=== PATIENT | female | born 1955 | race Caucasian/White ===

== ENCOUNTER 2021-10-08 08:54 | Outpatient (CLI) | payer MEDICARE, SELFPAY ==
--- NOTE | 2021-10-08 09:06 | MM_ITS ---
WS: [id number] BILATERAL DIGITAL SCREENING MAMMOGRAPHY WITH CAD CLINICAL INFORMATION: SCREENING HISTORY: Screening mammogram. No current complaints. COMPARISON: TECHNIQUE: Bilateral CC and MLO views. FINDINGS: Scattered fibroglandular densities bilaterally. A few tiny incidental punctate calcifications. No miranda picious focal mass, asymmetry, calcifications, or architectural distortion. No evidence of malignancy . MM/[place] [id number] IMPRESSION: BI-RADS: 2-Benign FOLLOW UP: 1 Year Follow-up Recommend return to annual screening mammography.
== END 2021-10-08 08:55 | disposition home or self-care (01) ==
PROVIDERS: PCP Nurse Practitioner Family; Visit Provider Nurse Practitioner Family
DX: Z12.31 Encounter for screening mammogram for malignant neoplasm of breast (principal)
CPT/HCPCS: 77067

== ENCOUNTER 2022-05-21 15:26 | Outpatient (CLI) | payer MEDICARE, SELFPAY ==
--- NOTE | 2022-05-21 15:48 | XR_ITS ---
WS: [email or web address] Exam: XR chest 2V* [id number] Date/Time of Exam: 05/21/2022 3:48 PM Reason For Exam: DYSPNEA No previous exams. There is infiltrate in the right lower lung zone that could represent chronic change or pneumonia. Le ft lung is clear. The lungs are fully inflated. No pleural effusions. Unremarkable cardiomediastinal silhouette. Bony structures are intact. XR/XR chest 2V* [id number] IMPRESSION: 1. Infiltrate in the right lower lung zone that may represent pneumonia or barkeep jose change.
== END 2022-05-21 15:27 | disposition home or self-care (01) ==
LOC: RAD 15:30
PROVIDERS: PCP Nurse Practitioner Family; Visit Provider Pediatrics
DX: R06.00 Dyspnea, unspecified (principal); R91.8 Other nonspecific abnormal finding of lung field
CPT/HCPCS: 71046

== ENCOUNTER → 2022-08-18 11:42 | Outpatient (BNVA) | payer MEDICARE, SELFPAY | PROVIDERS: PCP Family Medicine; Visit Provider Family Medicine | DX: M79.641 Pain in right hand (principal) | CPT/HCPCS: 73110; 73130 ==

== ENCOUNTER 2022-09-04 10:03 | Outpatient (CLI) | payer MEDICARE, SELFPAY ==
--- NOTE | 2022-09-04 10:47 | XR_ITS ---
WS: [email or web address] XR wrist RT min 3V* [id number] REASON FOR EXAM: wrist pain FINDINGS: No fracture or focal bone lesion. Mild narrowing of the radiocarpal joint with mild subchondral sclerosis of the subarticular radius. O therwise the joint spaces of the wrist are relatively well-preserved. No soft tissue abnormality. XR/XR wrist RT min 3V* [id number] IMPRESSION: Mild osteoarthritis of the right wrist as above.
--- NOTE | 2022-09-04 10:47 | XR_ITS ---
WS: [email or web address] XR hand RT min 3V* [id number] REASON FOR EXAM: wrist pain FINDINGS: No fracture or other focal bone lesion. Mild narrowing with subchondral sclerosis in the DIP joints of the fingers and the PIP joint of the f ifth finger. Similar but more pronounced arthropathy in the metacarpal phalangeal joint of the thumb. Similar mild er arthropathic change in the carpal metacarpal joint of the thumb. No soft tissue abnormality. XR/XR hand RT min 3V* [id number] IMPRESSION: Osteoarthritis of the right hand as above.
== END 2022-09-04 10:04 | disposition home or self-care (01) ==
LOC: RAD 10:08
PROVIDERS: PCP Family Medicine; Visit Provider Family Medicine
DX: M19.031 Primary osteoarthritis, right wrist; M19.041 Primary osteoarthritis, right hand
CPT/HCPCS: 73110; 73130

== ENCOUNTER 2022-11-13 09:11 | Outpatient (CLI) | payer MEDICARE, SELFPAY ==
--- NOTE | 2022-11-13 09:20 | XRR_ITS ---
PROCEDURE INFORMATION: Exam: XR Right Shoulder Exam date and time: 11/13/2022 9:30 AM Age: 67 years old Clinical indication: Pain; Shoulder; Right; Additional info: Pain of right shoulder TECHNIQUE: Imaging protocol: Radiologic exam of the Right shoulder. Views: 2 or more views. COMPARISON: CR XR chest 2V* [id number] 05/21/2022 3:48 PM FINDINGS: Bones/joints: There are mild degenerative changes at the AC joint. Glenohumeral joint is fairly well preserved. There is no fracture, malalignment or underlying osseous lesion detected. Soft tissues: Normal. XR/XR shoulder RT min 2V* [id number] IMPRESSION: No acute bony abnormalities.
== END 2022-11-13 09:12 | disposition home or self-care (01) ==
LOC: RAD 09:14
PROVIDERS: PCP Family Medicine; Visit Provider Family Medicine
DX: M25.511 Pain in right shoulder (principal); I10 Essential (primary) hypertension
CPT/HCPCS: 73030; 80053; 80061; 82043; 85025

== ENCOUNTER 2022-12-09 08:38 | Outpatient (RCR) | payer MEDICARE, SELFPAY | END 2022-12-30 23:59 | disposition home or self-care (01) | LOC: SPT 08:38 | PROVIDERS: PCP Family Medicine; Visit Provider Family Medicine | DX: M19.011 Primary osteoarthritis, right shoulder (principal) | CPT/HCPCS: 97110; 97161; G0283 ==

== ENCOUNTER 2023-01-27 06:45 | Outpatient (CLI) | payer MEDICARE, SELFPAY ==
--- NOTE | 2023-01-27 07:15 | MR_ITS ---
WS: [email or web address] EXAMINATION: MR shoulder RT wo con* [id number] ORDER DATE: 01/27/2023 7:14 AM COMPARISON: None. HISTORY: right shoulder pain, limited R CONTRAST: None. TECHNIQUE: Axial T2 STAR, coronal proton density fat sat, sagittal T2 fat sat, sagittal proton densit y fat sat, axial proton density fat sat, coronal T2 fat sat, and coronal T1 performed. After contrast , axial T1 fat sat, coronal T1 fat sat, and sagittal T1 fat sat were performed. FINDINGS: Moderate degenerative arthritis AC joint with mild edema. Mild downsloping acromion. Slight impingeme nt on the distal supraspinatus. Tendinopathy distal supraspinatus with intrasubstance tear distally. No tendon retraction. Normal infraspinatus. Normal teres minor. Biceps tendon intact within the bicipital groove. Normal in tra-articular biceps tendon. Biceps labral anchor appears intact. Degenerative fraying glenoid labrum . Small amount of subchondral cystic change involving the glenoid. Normal bone marrow signal in the h umeral head. Small amount of fluid in the subcoracoid bursa. MR/MR shoulder RT wo con* [id number] IMPRESSION: 1. Moderate degenerative arthritis AC joint with mild edema. Mild downsloping acromion. 2. Tendinopathy distal supraspinatus. Small intrasubstance tear in the suprasp inatus distally. No tendon retraction. 3. Rotator cuff is otherwise intact. 4. Normal biceps tendon in the bicipital groove. Intra-articular biceps tendon is intact. 5. No other acute findings.
== END 2023-01-27 06:46 | disposition home or self-care (01) ==
LOC: RAD 06:46
PROVIDERS: PCP Family Medicine; Visit Provider Family Medicine
DX: M19.011 Primary osteoarthritis, right shoulder (principal)
CPT/HCPCS: 73221

== ENCOUNTER → 2023-02-20 09:04 | Outpatient (BNVA) | payer MEDICARE, SELFPAY | PROVIDERS: PCP Family Medicine; Referring Provider Family Medicine; Visit Provider Student in an Organized Health Care Education/Training Program | DX: M75.21 Bicipital tendinitis, right shoulder (principal); M75.41 Impingement syndrome of right shoulder | CPT/HCPCS: 20610; 73030; 99204; J3301 ==

== ENCOUNTER → 2023-03-18 08:49 | Outpatient (BNVA) | payer MEDICARE, SELFPAY | PROVIDERS: PCP Family Medicine; Visit Provider Emergency Medicine | DX: J02.9 Acute pharyngitis, unspecified (principal); J30.1 Allergic rhinitis due to pollen | CPT/HCPCS: 87071; 87880 ==

== ENCOUNTER → 2023-04-09 09:40 | Outpatient (BNVA) | payer MEDICARE, SELFPAY | PROVIDERS: PCP Family Medicine; Visit Provider Student in an Organized Health Care Education/Training Program | DX: M75.21 Bicipital tendinitis, right shoulder (principal); M75.41 Impingement syndrome of right shoulder | CPT/HCPCS: 99213 ==

== ENCOUNTER → 2023-05-14 08:46 | Outpatient (BNVA) | payer MEDICARE, SELFPAY | PROVIDERS: PCP Family Medicine; Visit Provider Family Medicine | DX: E78.5 Hyperlipidemia, unspecified (principal) | CPT/HCPCS: 80053; 80061 ==

== ENCOUNTER 2023-05-27 07:58 | Outpatient (CLI) | payer MEDICARE, SELFPAY ==
--- NOTE | 2023-05-27 08:25 | MM_ITS ---
WS: [email or web address] VIEWS: MLO and CC views both breasts. 3D digital tomosynthesis is also included in this exam. Comparison made with prior exam of 07/22/2016, 08/05/2017, 04/26/2019, 10/08/2021.. Findings: There was no sign of mass, architectural distortion or suspicious calcification in either breast. Sc attered areas of fibroglandular density MM/[place] [id number] Impression: BI-RADS: 2-Benign finding. FOLLOW-UP: 1 Year Follow-up This mammogram was also analyzed by the Computer Aided Detection System R2 Imag e Endoscopy Nurse.
== END 2023-05-27 07:59 | disposition home or self-care (01) ==
PROVIDERS: PCP Family Medicine; Visit Provider Family Medicine
DX: Z12.31 Encounter for screening mammogram for malignant neoplasm of breast (principal)
CPT/HCPCS: 77063; 77067

== ENCOUNTER → 2023-11-12 08:39 | Outpatient (BNVA) | payer MEDICARE, SELFPAY | PROVIDERS: PCP Family Medicine; Visit Provider Family Medicine | DX: Z13.6 Encounter for screening for cardiovascular disorders (principal); I10 Essential (primary) hypertension | CPT/HCPCS: 80053; 85025 ==

== ENCOUNTER 2024-02-08 07:45 | Outpatient (CLI) | payer MEDICARE, SELFPAY ==
--- NOTE | 2024-02-08 08:30 | CT_ITS ---
WS: [id number] CT ABDOMEN PELVIS TECHNIQUE: Contrast-enhanced CT of the abdomen and pelvis with coronal and sagittal reformatted image s. CLINICAL INFORMATION: abdominal pain COMPARISON: None. DLP: 483.[address] scans at [facility] use at least one of these dose optimization techniques: automated e xposure control; mA and/or kV adjustment per patient size (includes targeted exams where dose is matc hed to clinical indication); or iterative reconstruction. FINDINGS: Prior hysterectomy. Prior cholecystectomy. Prior appendectomy. Subsegmental atelectasis RIGHT middle lobe. Noncalcified nodule RIGHT middle lobe measuring 3 mm. Slight bibasilar atelectasis. Diffuse fatty infiltration of the liver. Normal portal vein and splenic vein. Normal pancreatic paren chymal enhancement. Normal spleen. Adrenal glands are normal. No hydronephrosis in either kidney. Sma ll LEFT renal cyst. Pelvic phleboliths. Tiny esophageal hernia. Normal caliber abdominal aorta. Tiny fat-containing umbil ical hernia. Mild disc bulging L3-L5. Disc space narrowing worse L5-S1. IMPRESSION: 1. Prior hysterectomy and cholecystectomy. 2. Tiny esophageal hernia. 3. Mild diffuse fatty infiltration of the liver. 4. Noncalcified 3 mm nodule RIGHT middle lobe. Recommend 12-month CT chest follow-up. 5. Mild transverse colon constipation.
[2024-02-08 09:15] LABS: Blood Urea Nitrogen 17 mg/dL (8-23); Glomerular Filtration Rate 54.8 mL/min (90-130)
[2024-02-08] MEDS: iohexol 350 mg/mL 500 mL Btl (per mL) PO (09:43)
[2024-02-08] MEDS: iohexol 350 mg/mL 500 mL Btl (per mL) IV (09:44)
== END 2024-02-08 07:46 | disposition home or self-care (01) ==
LOC: RAD 07:46
PROVIDERS: PCP Family Medicine; Visit Provider Family Medicine
DX: K59.00 Constipation, unspecified (principal); K76.0 Fatty (change of) liver, not elsewhere classified; Z90.710 Acquired absence of both cervix and uterus; Z90.49 Acquired absence of other specified parts of digestive tract
CPT/HCPCS: 74177; 82565; 84520; Q9967

== ENCOUNTER → 2024-03-22 09:23 | Outpatient (BNVA) | payer MEDICARE, SELFPAY | PROVIDERS: PCP Family Medicine; Visit Provider Nurse Practitioner Family | DX: J02.9 Acute pharyngitis, unspecified (principal) | CPT/HCPCS: 87880 ==

== ENCOUNTER 2024-05-21 12:10 | Emergency (ER) | payer MEDICARE, SELFPAY ==
[2024-05-21] VITALS (8 sets, daily range): BP systolic 125–148; BP diastolic 75–88; PULSE 54–98; RESP 14–22; TEMP 36; O2SAT 95–98
--- NOTE | 2024-05-21 12:20 | XRR_ITS ---
PROCEDURE INFORMATION: Exam: XR Chest Exam date and time: 05/21/2024 12:26 PM Age: 68 years old Clinical indication: Pain; Chest pressure; Additional info: Cp TECHNIQUE: Imaging protocol: Radiologic exam of the chest. Views: 1 view. COMPARISON: CR XR chest 2V* [id number] 05/21/2022 3:48 PM FINDINGS: Lungs: Unremarkable. No consolidation. Pleural spaces: Unremarkable. No pleural effusion. No pneumothorax. Heart/Mediastinum: Unremarkable. No cardiomegaly. Bones/joints: Unremarkable. XR/XR chest 1V portable [id number] IMPRESSION: No acute findings.
--- NOTE | 2024-05-21 12:20 | ECG_ITS ---
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 Measurements Intervals [place] Rate: 58 P: 78 NE: 136 QRS: 72 QRSD: 94 T: 76 QT: 366 QTc: 361 Interpretive Statements SINUS BRADYCARDIA MODERATE ST DEPRESSION [0.05+ mV ST DEPRESSION] No previous ECG available for comparison Electronically Signed On 05-22-2024 9:52:20 CDT by Enrique Lunsford M.D. [email or web address]
[2024-05-21 12:28] LABS: Basophils % 0.3 %; Eosinophils # 0.1 10^3/uL (0.0-0.8); Hematocrit 47.5 % (36-47); Lymphocytes # 2.3 10^3/uL (0.8-4.8); Lymphocytes % 31.9 %; Mean Corpuscular HGB Conc 33.7 g/dL (30-55); Mean Corpuscular Hemoglobin 31.4 pg (27-33); Mean Corpuscular Volume 93.1 fl (85-98); Mean Platelet Volume 9.7 fL (7.4-10.4); Monocytes # 0.4 10^3/uL (0.2-0.9); Monocytes % 5.2 %; Neutrophils % 61.3 %; Nucleated Red Blood Cells % 0 %; Platelet Count 303 10^3/cmm (157-399); Red Cell Distribution Width 12.4 % (12.1-15.1); White Blood Count 7.33 10^3/uL (3.29-11.43)
[2024-05-21] MEDS: famotidine 20 mg/2 mL INJ IVP (12:32)
[2024-05-21 12:45] LABS: Troponin(5th) Baseline 10 ng/L (0-10)
[2024-05-21 12:46] LABS: Alanine Aminotransferase 26 U/L (0-33); Albumin Level 4.6 g/dL (3.5-5.2); Alkaline Phosphatase 63 U/L (35-105); Aspartate Amino Transferase 22 U/L (0-32); Blood Urea Nitrogen 15 mg/dL (8-23); Calcium 10.4 mg/dL (8.5-10.5); Carbon Dioxide 29 mmol/L (22-29); Chloride 99 mmol/L (98-107); Glomerular Filtration Rate 54.8 mL/min (90-130); Glucose 107 mg/dL (65-115); Lipase 45 U/L (13-60); Osmolality Calculated 291 mOsm/kg (285-295); Sodium 140 mmol/L (136-145); Total Bilirubin 0.4 mg/dL (0.15-1.2); Total Protein 7.6 g/dL (6.6-8.7)
[2024-05-21 12:47] LABS: Add Urine Microscopic? NO; Charge for UA Resulting for Rev
[2024-05-21 13:00] LABS: Bilirubin Urine Neg (Negative); Blood Urine Neg (Negative); Glucose Urine UA Norm (Normal); Ketones Urine Negative (Negative); Leukocyte Esterase Urine Negative (Negative); Nitrate Urine Negative (Negative); Protein Urine Neg (Negative); Sulfosalicylic Acid Urine Negative (Negative); Urine Appearance Clear (CLEAR); Urine Color Yellow (Yellow); Urobilinogen Urine Norm (Negative); pH Urine 8 (5-7)
--- NOTE | 2024-05-21 13:03 | ED_ITS ---
HPI - Chest Pain 2 General: Chief Complaint: Chest Pain Stated Complaint: chest pains, heart racing Time Seen by Provider: 05/21/24 12:14 History of Present Illness: 68-year-old female presents with subster nal/epigastric pain that radiates to her back. She reports she was just set setting there when it started approximately 1 hour prior to arrival. She describes a sharp stabbing pain that comes and goes. Nothing seems to make it better or worse. Associated symptoms: Reports abdominal pain; Deny dyspnea, fever(s), nausea, palpitations, syncope or vomiting Review of Systems 2 Const: Denies: fever(s) or chills Card: Reports: chest pain; Denies: palpitations, irregular heart rhythm, lightheadedness or syncope Resp: Denies: dyspnea, productive cough or wheezing GI: Reports: abdominal pain; Denies: nausea or vomiting Musc: Reports: back pain Skin/Breast: Denies: rash or pruritus Neuro: Denies: headache(s) PFSH ED 2 PFSH: Medical History URI with cough and congestion GERD (gastroesophageal reflux disease) COPD (chronic obstructive pulmonary disease) Benign essential HTN Surgical History History of cholecystectomy History of carpal tunnel release Bilaterally History of appendectomy History of total abdominal hysterectomy and bilateral salpingo-oophorectomy Social History Smoking and tobacco/nicotine status: never used tobacco/nicotine Alcohol intake: never Substance/Drug Use: never Physical Exam 2 Const: COMMON NORMALS: no acute distress, patient oriented x3 and alert Resp: COMMON NORMALS: normal respiratory effort, No retractions and No use of accessory muscles Cardio: COMMON NORMALS: regular rate and regular rhythm RATE: regular rate RHYTHM: regular rhythm GI: COMMON NORMALS: Soft to palpation PALPATION: Yes Soft to palpation and Yes Tenderness to palpation present (GI) Details: other (Epigastric) Extremity: COMMON NORMALS: normal to inspection and full ROM Neuro: COMMON NORMALS: patient oriented x3, moves all extremities, no focal motor deficits and no sensory deficits noted SENSORIUM/ORIENTATION: Yes alert Psych: COMMON NORMALS: mental status grossly normal, cooperative and normal affect Skin: COMMON NORMALS: no rashes or lesions noted GENERAL SKIN EXAM: no rashes or lesions noted Course 2 Vital Signs: Vital signs: Vital Signs Temperature 96.8 F L 05/21/24 12:14 Pulse Rate 55 L 05/21/24 15:00 Respiratory Rate 16 05/21/24 15:00 Blood Pressure 137/86 05/21/24 15:00 Pulse Oximetry 96 05/21/24 15:00 Oxygen Delivery Me thod Room Air 05/21/24 15:00 MDM - Chest Pain Medical Decision Making Patient diagnostic studies were ordered reviewed and interpreted by me. Patient initial troponin was 8 with a slight increase to 3.3 so no significant delta change. Patient's EKGs both show sinus bradycardia with no significant changes noted. Patient is feeling significantly better and her pain completely resolved following famotidine. She reports she has a history of a hiatal hernia and thinks that that is what was related. Patient was offered admission for further cardiac workup however she declined. Patient is stable and discharged home. She will follow-up with her primary care provider for further outpatient evaluation. Lab Data 05/21/24 12:22 05/21/24 12:22 Radiology Impressions Chest X-Ray 05/21/24 12:20 IMPRESSION: No acute findings. Laboratory Results WBC 7.33 10^3/uL (3.29-11.43) 05/21/24 12:22 RBC 5.10 10^6/uL (3.85-5.65) 05/21/24 12:22 Hgb 16.00 g/dL (11.27-16.99) 05/21/24 12:22 Hct 47.5 % (36-47) H 05/21/24 12:22 MCV 93.1 fl (85-98) 05/21/24 12:22 MCH 31.4 pg (27-33) 05/21/24 12: MCHC 33.7 g/dL (30-55) 05/21/24 12: RDW 12.4 % (12.1-15.1) 05/21/24 12:22 Plt Count 303 10^3/cmm (157-399) 05/21/24 12: MPV 9.7 fL (7.4-10.4) 05/21/24 12:22 Neut % (Auto) 61.3 % 05/21/24 12:22 Lymph % (Auto) 31.9 % 05/21/24 12:22 [place] % (Auto) 5.2 % 05/21/24 12:22 Eos % (Auto) 1.0 % 05/21/24 12:22 Baso % (Auto) 0.3 % 05/21/24 12:22 Neut # (Auto) 4.50 10^3/uL (1.8-7.7) 05/21/24 12:22 Lymph # (Auto) 2.3 10^3/uL (0.8-4.8) 05/21/24 12:22 [place] # (Auto) 0.4 10^3/uL (0.2-0.9) 05/21/24 12: Eos # (Auto) 0.1 10^3/uL (0.0-0.8) 05/21/24 12: Baso # (Auto) 0.0 10^3/uL (0.0-0.1) 05/21/24 12:22 Nucleated RBC % (auto) 0 % 05/21/24 12: Nucleated RBCs # 0.0 /100WBC 05/21/24 12:22 Sodium 140 mmol/L (136-145) 05/21/24 12:22 Potassium 4.0 mmol/L (3.5-5.1) 05/21/24 12: Chloride 99 mmol/L (98-107) 05/21/24 12:22 Carbon Dioxide 29 mmol/L (22-29) 05/21/24 12:22 Anion Gap 16.0 (5-19) 05/21/24 12:22 BUN 15 mg/dL (8-23) 05/21/24 12:22 Creatinine 1.0 mg/dL (0.5-0.9) H 05/21/24 12:22 GFR Calculation 54.8 mL/min (90-130) L 05/21/24 12:22 Glucose 107 mg/dL (65-115) 05/21/24 12:22 Calculated Osmolality 291 mOsm/kg (285-295) 05/21/24 12:22 Calcium 10.4 mg/dL (8.5-10.5) 05/21/24 12:22 Total Bilirubin 0.4 mg/dL (0.15-1.2) 05/21/24 12:22 AST 22 U/L (0-32) 05/21/24 12:22 ALT 26 U/L (0-33) 05/21/24 12:22 Alkaline Phosphatase 63 U/L (35-105) 05/21/24 12:22 Troponin T Baseline 10 ng/L (0-10) 05/21/24 12:22 Troponin T 120 Minute 13.30 ng/L (0-10) H 05/21/24 14:11 Delta Troponin T 3.30 ABS# (0-10) 05/21/24 14:11 Total Protein 7.6 g/dL (6.6-8.7) 05/21/24 12:22 Albumin 4.6 g/dL (3.5-5.2) 05/21/24 12:22 Globulin 3.0 g/dL (1.3-4.6) 05/21/24 12:22 Lipase 45 U/L (13-60) 05/21/24 12:22 Urine Color Yellow (Yellow) 05/21/24 12:39 Urine Appearance Clear (CLEAR) 05/21/24 12:39 Urine pH 8 (5-7) H 05/21/24 12:39 Ur Specific [place] 1.010 (1.005-1.030) 05/21/24 12:39 Urine Protein Neg (Negative) 05/21/24 12:39 Urine Glucose (UA) Norm (Normal) 05/21/24 12:39 Urine Ketones Negative (Negative) 05/21/24 12:39 Urine Blood Neg (Negative) 05/21/24 12:39 Urine Nitrate Negative (Negative) 05/21/24 12:39 Urine Bilirubin Neg (Negative) 05/21/24 12:39 Prot Sulfosalicylic Acd Negative (Negative) 05/21/24 12:39 Urine Urobilinogen Norm mg/dL (Negative) 05/21/24 12:39 Ur Leukocyte Esterase Negative (Negative) 05/21/24 12:39 All radiology interpretation(s) finalized by discharge EKG Data EKG 1: I personally reviewed and interpreted this EKG as follows: EKG interpretation date: 05/21/24 EKG interpretation time: 12:15 Interpretation: Heart rate 58, sinus bradycardia, no acute ST elevation or changes noted NJ 136, QRS 94, QTc 363 EKG 2: I personally reviewed and interpreted this EKG as follows: EKG interpretation date: 05/21/24 EKG interpretation time: 15:00 Interpretation: Sinus bradycardia, ventricular rate 55, NJ 131, QRS 85, QTc 386, unchanged from previous. Discharge Plan Discharge Patient Disposition: Home Clinical Impression: Hernia, hiatal, Nonspecific chest pain GERD (gastroesophageal reflux disease) Qualifiers: Esophagitis presence: with esophagitis Esophagitis bleeding: without hemorrhage Qualified Code(s): K21.00 - Gastro-esophageal reflux disease with esophagitis, without bleeding Condition: Stable Prescriptions: No Action multivitamin Tablet 1 tab PO DAILY meclizine 25 mg tablet 25 mg PO DAILY PRN vitamin B complex [B Complex-Vitamin B12] Tablet 1 tab PO DAILY simethicone 125 mg capsule 125 mg PO DAILY PRN ketoconazole 2 % cream 1 applic topical BID Qty: 15 0RF ascorbic acid (vitamin C) 1,000 mg capsule 1 g PO Q6H cholecalciferol (vitamin D3) 25 mcg (1,000 unit) capsule 25 mcg PO DAILY metronidazole 500 mg tablet 500 mg PO TID 10 Days Qty: 30 0RF ciprofloxacin HCl 500 mg tablet 500 mg PO BID Qty: 20 0RF azithromycin 250 mg tablet See Rx Instructions PO .COMPLEX Qty: 6 0RF Rx Instructions: For 250 mg dose pack: take 500 mg today (day 1), then 250 mg for 4 days (days 2-5) PO cetirizine [Zyrtec] 10 mg tablet 10 mg PO DAILY Qty: 30 0RF fluticasone furoate-vilanterol [Breo Ellipta] 200-25 mcg/dose blister with device 1 inh inhalation DAILY Qty: 60 5RF benzonatate 200 mg capsule 200 mg PO BID PRN (Reason: cough) Qty: 14 0RF fluticasone propionate 50 mcg/actuation spray,suspension See Rx Instructions .ROUTE .COMPLEX Qty: 16 1RF Dose Instruction: SPRAY 2 SPRAYS INTO EACH NOSTRIL EVERY DAY NEEDED FOR NASAL CONGESTION Rx Instructions: SPRAY 2 SPRAYS INTO EACH NOSTRIL EVERY DAY NEEDED FOR NASAL CONGESTION estradiol 0.01 % (0.1 mg/gram) cream 1 g vaginal .twice weekly Qty: 42.5 3RF hydrochlorothiazide 12.5 mg tablet See Rx Instructions .ROUTE .COMPLEX Qty: 90 1RF Dose Instruction: TAKE 1 TABLET BY MOUTH EVERY DAY IN THE MORNING Rx Instructions: TAKE 1 TABLET BY MOUTH EVERY DAY IN THE MORNING pantoprazole 40 mg tablet,delayed release (DR/EC) See Rx Instructions .ROUTE .COMPLEX Qty: 90 1RF Dose Instruction: TAKE 1 TABLET BY MOUTH EVERY DAY Rx Instructions: TAKE 1 TABLET BY MOUTH EVERY DAY celecoxib 100 mg capsule See Rx Instructions .ROUTE .COMPLEX Qty: 180 1RF Dose Instruction: TAKE 1 CAPSULE BY MOUTH TWICE A DAY Rx Instructions: TAKE 1 CAPSULE BY MOUTH TWICE A DAY albuterol sulfate 90 mcg/actuation HFA aerosol inhaler See Rx Instructions .ROUTE .COMPLEX Qty: 18 0RF Dose Instruction: INHALE 1 PUFF BY MOUTH 4 TIMES DAILY Rx Instructions: INHALE 1 PUFF BY MOUTH 4 TIMES DAILY ezetimibe 10 mg tablet See Rx Instructions .ROUTE .COMPLEX Qty: 90 1RF Dose Instruction: TAKE 1 TABLET BY MOUTH EVERY DAY Rx Instructions: TAKE 1 TABLET BY MOUTH EVERY DAY Discharge Orders: Discharge ED (Routine); Ordered 05/21/24 Ordered By: Nicholas Gallardo Referrals: Sherri Ponce DO [Primary Care Provider] - Discharge Diet: Usual diet Discharge Activity: Increase activity as tolerated Patient Instructions: Opioid Safety, Pain Management, Hiatal Hernia (DC), GERD (Gastroesophageal Reflux Disease) (DC) Activity Restrictions/Additional Instructions: Follow-up with your primary care provider in a couple days for recheck of your symptoms. Please start famotidine twice daily for the next 10 to 14 days Coding Level of Care Code ED Pbx Technician for Tom Figueroa
--- NOTE | 2024-05-21 15:00 | ECG_ITS ---
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 Measurements Intervals [place] Rate: 55 P: 76 NC: 131 QRS: 58 QRSD: 85 T: 62 QT: 397 QTc: 382 Interpretive Statements SINUS BRADYCARDIA Compared to ECG 05/21/2024 12:12:55 ST (T wave) deviation no longer present Electronically Signed On 05-22-2024 9:57:12 CDT by Enrique Lunsford M.D. [id number]
== END 2024-05-21 13:36 | disposition home or self-care (01) ==
PROVIDERS: Emergency Provider Student in an Organized Health Care Education/Training Program; PCP Family Medicine
DX: K21.00 Gastro-esophageal reflux disease with esophagitis, without bleeding (principal); K44.9 Diaphragmatic hernia without obstruction or gangrene; R07.89 Other chest pain; R00.1 Bradycardia, unspecified; J44.9 Chronic obstructive pulmonary disease, unspecified; I10 Essential (primary) hypertension
CPT/HCPCS: 36415; 71045; 80053; 81003; 83690; 84484; 85025; 93005; 96374; 99285; 99291; J3490

== ENCOUNTER → 2024-05-26 10:55 | Outpatient (BNVA) | payer MEDICARE, SELFPAY | PROVIDERS: PCP Family Medicine; Visit Provider Family Medicine | DX: R41.3 Other amnesia (principal); E53.8 Deficiency of other specified B group vitamins | CPT/HCPCS: 82607; 84443 ==

== ENCOUNTER 2024-06-07 12:07 | Outpatient (CLI) | payer MEDICARE, SELFPAY ==
--- NOTE | 2024-06-07 12:30 | MM_ITS ---
WS: [email or web address] BILATERAL 3D TOMOSYNTHESIS DIGITAL SCREENING MAMMOGRAPHY WITH CAD CLINICAL INFORMATION: screening HISTORY: Screening mammogram. No current complaints. COMPARISON: 2022 TECHNIQUE: Bilateral CC and MLO views. FINDINGS: Scattered fibroglandular densities bilaterally. No suspicious focal mass, asymmetry, calcifications, or architectural distortion. No evidence of malignancy. Vascular calcification. MM/[place] [id number] IMPRESSION: BI-RADS: 2-Benign FOLLOW UP: 1 Year Follow-up Recommend return to annual screening mammography.
--- NOTE | 2024-06-07 13:30 | CT_ITS ---
WS: [id number] CT HEAD TECHNIQUE: Noncontrast CT of the head obtained from the skullbase to the vertex. CLINICAL INFORMATION: memory impairment COMPARISON: None. DLP: 990.[address] scans at [facility] use at least one of these dose optimization techniques: automated e xposure control; mA and/or kV adjustment per patient size (includes targeted exams where dose is matc hed to clinical indication); or iterative reconstruction. FINDINGS: No evidence of intracranial hemorrhage or mass effect. Ventricular system and basal cisterns are babb nt. Moderate small vessel changes with mild parenchymal volume loss. No extra-axial fluid collections . No evidence of mass or mass effect. Vascular calcification. Paranasal sinuses are well aerated. Mild mucosal thickening in the mastoid tips. CT/CT head wo con* [id number] IMPRESSION: 1. No evidence of intracranial hemorrhage or mass effect. 2. Moderate small vessel changes. Mild parenchymal volume loss. 3. Vascular calcification. 4. No acute intracranial findings.
== END 2024-06-07 12:08 | disposition home or self-care (01) ==
LOC: RAD 12:08
PROVIDERS: PCP Family Medicine; Visit Provider Family Medicine
DX: Z12.31 Encounter for screening mammogram for malignant neoplasm of breast (principal); R41.3 Other amnesia
CPT/HCPCS: 70450; 77063; 77067

== ENCOUNTER → 2024-06-22 11:00 | Outpatient (BNVA) | payer MEDICARE, SELFPAY | PROVIDERS: PCP Family Medicine; Visit Provider Surgery | DX: R19.7 Diarrhea, unspecified (principal); K21.00 Gastro-esophageal reflux disease with esophagitis, without bleeding; R10.10 Upper abdominal pain, unspecified | CPT/HCPCS: 99204 ==

== ENCOUNTER 2024-06-23 10:14 | Outpatient (CLI) | payer MEDICARE, SELFPAY | END 2024-06-23 10:15 | disposition home or self-care (01) | LOC: LAB 10:15 | PROVIDERS: PCP Family Medicine; Visit Provider Surgery | DX: R19.7 Diarrhea, unspecified (principal) | CPT/HCPCS: 82274; 83630 ==

== ENCOUNTER → 2024-07-04 10:29 | Outpatient (BNVA) | payer MEDICARE, SELFPAY | PROVIDERS: PCP Family Medicine; Visit Provider Family Medicine | DX: M19.012 Primary osteoarthritis, left shoulder (principal); M19.011 Primary osteoarthritis, right shoulder | CPT/HCPCS: 73030 ==

== ENCOUNTER 2024-07-12 10:32 | Day surgery (SDC) | payer MEDICARE, SELFPAY ==
[2024-07-12 10:50] VITALS: BP 148/82; PULSE 59; RESP 18; TEMP 36.6; O2SAT 98; BMI 29.2
[2024-07-12] MEDS: sodium chloride 0.9% 1,000 ML 30 ML IV (10:55)
[2024-07-12 11:09] LABS: Glucose Point of Care 109 mg/dL (70-110)
--- NOTE | 2024-07-12 11:16 | W.PM.OPSUD ---
Surgery/Procedure H&P Update DATE OF PROCEDURE: July 12, 2024 DATE H&P PERFORMED: 06/23/24 H&P UPDATE INFORMATION: I have reviewed H&P completed within last 30 days, I have examined patient prior to procedure, No changes to prior documentation and H&P is in [facility] EMR on date indicated PLANNED PROCEDURE: Operation Date: 07/12/24 11:50 Proposed Procedures p EGD [id number], [id number], G0105, Z12.11(Not Applicable) - Kev Bower MD s Colonoscopy(Not Applicable) - Kev Bower MD
--- NOTE | 2024-07-12 11:39 | P.ANESASSM_ITS ---
Pre-Anesthetic Assessment Height/Weight: Height 1.57 m Weight 72.575 kg Temp Pulse Resp BP Pulse Ox O2 Del Method 97.9 F 59 L 18 148/82 98 Room Air 07/12/24 10:50 07/12/24 10:50 07/12/24 10:50 07/12/24 10:50 07/12/24 10:50 07/12/24 10:50 Preop Diagnosis: Screening Hiatal Hernia Operation Date: 07/12/24 11:50 Proposed Procedures p EGD 71634, 23840, G0105, Z12.11(Not Applicable) - Kev Bower MD s Colonoscopy(Not Applicable) - Kev Bower MD Familial anesthetic complications: none Was Beta Emily taken within 24 hours: N/A Was Clonidine taken within 24 hours: N/A Last intake: Intake Last Liquid Date 07/11/24 Last Liquid Time 23:00 Last Solid Date 07/10/24 Last Solid Time 20:00 Social No alcohol and No tobacco Exam alert, oriented x 3, clear to auscultation bilaterally and regular rate & rhythm Airway Submandibular: within normal limits Cervical ROM: within normal limits Mallampati: Class II Dentition: false (upper plate) Pulmonary Chronic Obstructive Pulmonary Disease CV/HEM Hypertension came to the ED for chest pain about a month ago per patient labs and ekg were inconclusive of a heart attach recommended being worked up for duodenal ulcer. None reported Hepatic None reported GI Gastroesophageal Reflux Disease and Hiatal Hernia protonix well controlled. Metabolic Hyperlipidemia issues with hypoglycemia. [facility] [place]/[facility] None reported Neuropsych Deficit (memory deficit per patient short term memory issue medication names and such ) and Transient Ischemic Attack (2019) Anesthetic Plan ASA status: 2 Medications/Allergies Home Medications Medication Instructions Recorded Confirmed Last Taken Type meclizine 25 mg tablet 25 mg PO DAILY PRN Dizziness Or 06/02/22 07/07/24 07/11/24 History Vertigo multivitamin 1 tab PO DAILY 06/02/22 07/07/24 07/11/24 History cholecalciferol (vitamin D3) 25 25 mcg PO DAILY 02/20/23 07/07/24 07/11/24 History mcg (1,000 unit) capsule fluticasone furoate 200 1 inh inhalation DAILY #60 ea 11/12/23 07/07/24 07/11/24 Rx mcg-vilanterol 25 mcg/dose inhalation powder (Breo Ellipta) rhubarb root extract 4 mg tablet 4 mg PO DAILY 07/04/24 07/07/24 07/11/24 History (Estroven Complete Menopause Relief) albuterol sulfate 90 mcg/actuation 1 puff inhalation QID PRN 07/07/24 07/07/24 07/12/24 08:30 History aerosol inhaler Shortness Of Breath Or Wheezing celecoxib 100 mg capsule 100 mg PO BID 07/07/24 07/07/24 07/11/24 History ezetimibe 10 mg tablet 10 mg PO DAILY 07/07/24 07/07/24 07/11/24 History hydrochlorothiazide 12.5 mg tablet 12.5 mg PO DAILY 07/07/24 07/07/24 07/12/24 08:30 History pantoprazole 40 mg tablet,delayed 40 mg PO DAILY 07/07/24 07/07/24 07/11/24 History release Allergies Allergy/AdvReac Type Severity Reaction Status Date / Time Xtttzcr-FOY-BsC Reductase Allergy Severe throat Verified 07/07/24 09:59 Inhibitor swelling aspirin Allergy Unknown ADR-Abdominal Verified 07/07/24 09:59 Pain codeine Allergy ADR-Abdominal Verified 07/07/24 09:59 Pain morphine Allergy ADR-Abdominal Verified 07/07/24 09:59 Pain penicillin G Allergy ALGY-Bliste Verified 07/07/24 09:59 r Sulfa (Sulfonamide Allergy ADR-Nausea Verified 07/07/24 09:59 Antibiotics) Current Medications Generic Name Dose Route Start Last Admin Trade Name Freq PRN Reason Stop Dose Admin Sodium Chloride 1,000 mls @ 30 mls/hr 07/12/24 10:45 07/12/24 10:55 Sodium Chloride 0.9% IV 07/13/24 10:44 30 mls/hr .Q24H TAMMY Administration PFSH Anesthesia Medical History (Updated 07/07/24 @ 09:17 by Sita Bailey) URI with cough and congestion GERD (gastroesophageal reflux disease) COPD (chronic obstructive pulmonary disease) Benign essential HTN Surgical History History of cholecystectomy History of carpal tunnel release Bilaterally History of appendectomy History of total abdominal hysterectomy and bilateral salpingo-oophorectomy Social History (Updated 07/04/24 @ 10:08 by Jace Ge MD) Smoking and tobacco/nicotine status: former use of tobacco/nicotine Quit status (tobacco/nicotine): has quit using Former quit date comment: quit 40yrs ago Alcohol intake: never Substance/Drug Use: never Data Anesthesia Cardiac Studies: No Data to Display
[2024-07-12 12:32] VITALS: BP 119/68; PULSE 72; RESP 14; TEMP 36.3; O2SAT 94
[2024-07-12 12:49] VITALS: BP 131/72; PULSE 64; RESP 16; O2SAT 95
[2024-07-12 13:05] VITALS: BP 148/80; PULSE 65; RESP 18; O2SAT 97
--- NOTE | 2024-07-12 13:15 | ANE.PACU2 ---
Inpatient post-anesthesia follow up: Airway intact: Yes Vital signs: Temperature 97.4 F Pulse Rate 65 Respiratory Rate 18 Blood Pressure 148/80 Pulse Oximetry 97 Oxygen Delivery Me thod Room Air Oxygen Flow Rate 4 Fraction of Inspir ed Oxygen Hydration adequate: Yes Nausea and vomiting: No Pain level: 1 Mental status: Baseline
== END 2024-07-12 13:15 | disposition home or self-care (01) ==
PROVIDERS: PCP Family Medicine; Visit Provider Surgery
PROC: 0DJ08ZZ Inspection of Upper Intestinal Tract, Via Natural or Artificial Opening Endoscopic (ICD-10-PCS; CPT 43235; principal; 2024-07-12 11:50)
PROC: 0DJD8ZZ Inspection of Lower Intestinal Tract, Via Natural or Artificial Opening Endoscopic (ICD-10-PCS; CPT 45378; 2024-07-12 11:50)
DX: Z12.11 Encounter for screening for malignant neoplasm of colon (principal); K44.9 Diaphragmatic hernia without obstruction or gangrene; K57.30 Diverticulosis of large intestine without perforation or abscess without bleeding; K29.50 Unspecified chronic gastritis without bleeding; D12.2 Benign neoplasm of ascending colon; J44.9 Chronic obstructive pulmonary disease, unspecified; I10 Essential (primary) hypertension; K21.9 Gastro-esophageal reflux disease without esophagitis; E78.5 Hyperlipidemia, unspecified; Z86.73 Personal history of transient ischemic attack (TIA), and cerebral infarction without residual deficits; F17.200 Nicotine dependence, unspecified, uncomplicated
CPT/HCPCS: 36416; 43239; 45380; 82962; 88305; 88342; J2704; J7030

== ENCOUNTER → 2024-07-29 07:42 | Outpatient (BNVA) | payer MEDICARE, SELFPAY | PROVIDERS: PCP Family Medicine; Visit Provider Surgery | DX: Z09 Encounter for follow-up examination after completed treatment for conditions other than malignant neoplasm (principal); K21.00 Gastro-esophageal reflux disease with esophagitis, without bleeding; R10.9 Unspecified abdominal pain | CPT/HCPCS: 99213 ==

== ENCOUNTER → 2024-09-19 08:33 | Outpatient (BNVA) | payer MEDICARE, SELFPAY | PROVIDERS: PCP Family Medicine; Visit Provider Family Medicine | DX: I10 Essential (primary) hypertension (principal) | CPT/HCPCS: 80061 ==

== ENCOUNTER 2024-10-03 11:29 | Emergency (ER) | payer MEDICARE, SELFPAY ==
--- NOTE | 2024-10-03 11:34 | XR_ITS ---
WS: [id number] XR chest 1V portable [id number] REASON FOR EXAM: cp FINDINGS: The chest is unchanged compared to 05/21/2024. Mild tortuosity of the thoracic aorta. Normal heart size. Calcified granulomas disease in both hemithoraces. No acute pulmonary parenchymal or pleural abnormality. No lung nodule, mass, or adenopathy. Mild to moderate degenerative spondylosis in the thoracic spine XR/XR chest 1V portable [id number] IMPRESSION: No acute chest abnormality.
--- NOTE | 2024-10-03 11:34 | ECG_ITS ---
[facility] Test Date: 2024-10-03 Pat Name: Phuong Sweeney Department: Room: Gender: Female Digestion Operator: : 1955 Requested By: Jorge Adams Order Number: [id number] Katelynn MD: Heidi Worthington M.D. Measurements Intervals [place] Rate: 54 P: 61 NE: 129 QRS: 40 QRSD: 86 T: 68 QT: 394 QTc: 373 Interpretive Statements SINUS BRADYCARDIA MODERATE ST DEPRESSION [0.05+ mV ST DEPRESSION] Compared to ECG 05/21/2024 15:00:44 ST (T wave) deviation now present Electronically Signed On 10-06-2024 22:01:01 STAVE GRADER by Heidi Worthington M.D. [id number]
[2024-10-03 11:54] VITALS: BP 148/79; PULSE 55; RESP 18; TEMP 36.4; O2SAT 97; BMI 30.3
[2024-10-03 13:53] LABS: Basophils # 0.1 10^3/uL (0.0-0.1); Basophils % 0.6 %; Eosinophils # 0.1 10^3/uL (0.0-0.8); Eosinophils % 1.5 %; Hematocrit 46.9 % (36-47); Lymphocytes # 2.3 10^3/uL (0.8-4.8); Lymphocytes % 27.7 %; Mean Corpuscular HGB Conc 32.4 g/dL (30-55); Mean Corpuscular Volume 95.7 fl (85-98); Mean Platelet Volume 9.8 fL (7.4-10.4); Monocytes # 0.6 10^3/uL (0.2-0.9); Monocytes % 7.4 %; Neutrophils # 5.11 10^3/uL (1.8-7.7); Neutrophils % 62.3 %; Nucleated Red Blood Cells % 0 %; Platelet Count 328 10^3/cmm (157-399); Red Cell Distribution Width 12.6 % (12.1-15.1)
[2024-10-03 14:05] LABS: INR 0.94 (0.8-1.2)
[2024-10-03 14:16] LABS: Troponin(5th) Baseline 14 ng/L (0-10)
[2024-10-03 14:56] LABS: Alanine Aminotransferase 25 U/L (0-33); Albumin Level 4.2 g/dL (3.5-5.2); Alkaline Phosphatase 67 U/L (35-105); Anion Gap 17.4 (5-19); Aspartate Amino Transferase 25 U/L (0-32); Blood Urea Nitrogen 16 mg/dL (8-23); Carbon Dioxide 25 mmol/L (22-29); Chloride 102 mmol/L (98-107); Creatinine Clr Calc Pharmacy 49.0203; Globulin 3.4 g/dL (1.3-4.6); Glucose 93 mg/dL (65-115); Lipase 33 U/L (13-60); Osmolality Calculated 291 mOsm/kg (285-295); Potassium 4.4 mmol/L (3.5-5.1); Sodium 140 mmol/L (136-145); Total Bilirubin 0.3 mg/dL (0.15-1.2); Total Protein 7.6 g/dL (6.6-8.7)
--- NOTE | 2024-10-03 15:38 | ED_ITS ---
HPI - Arrhythmia/Palpitations 2 General: Chief Complaint: Arrhythmia/Palpitations Stated Complaint: abnormal ekg sent from urgent care Time Seen by Provider: 10/03/24 14:27 History of Present Illness: 69-year-old female presents emergency ro om with complaint of rapid heart rate. States she had palpitations intermittently for the last 2 nights she is not having palpitations now. She reports some chest pain shortness of breath and dizziness has no cardiac history of arrhythmias or coronary artery disease. She is not diabetic. She does have a history hypertension is on hydrochlorothiazide her blood pressure is slightly elevated at this time. Related Data Home Medications Medication Instructions Recorded Confirmed meclizine 25 mg tablet 25 mg PO DAILY PRN Dizziness Or 06/02/22 10/03/24 Vertigo multivitamin 1 tab PO DAILY 06/02/22 10/03/24 cholecalciferol (vitamin D3) 25 25 mcg PO DAILY 02/20/23 10/03/24 mcg (1,000 unit) capsule rhubarb root extract 4 mg tablet 4 mg PO DAILY 07/04/24 10/03/24 (Estroven Complete Menopause Relief) Previous Rx's Medication Instructions Recorded fluticasone furoate 200 1 inh inhalation DAILY #60 ea 11/12/23 mcg-vilanterol 25 mcg/dose inhalation powder (Breo Ellipta) albuterol sulfate 90 mcg/actuation 1 puff inhalation QID PRN 07/26/24 aerosol inhaler Shortness Of Breath Or Wheezing #8.5 grams hydrocortisone 1 % topical cream 1 applic topical BID PRN skin 07/26/24 (Cortisone (hydrocortisone)) irritation #28.35 grams pantoprazole 40 mg tablet,delayed 40 mg PO DAILY #30 tabs 07/29/24 release celecoxib 100 mg capsule 100 mg PO BID #180 caps 09/19/24 ezetimibe 10 mg tablet 10 mg PO DAILY #90 tabs 09/27/24 aspirin 81 mg tablet,delayed 81 mg PO DAILY #30 tabs 10/03/24 release isosorbide mononitrate 30 mg 30 mg PO DAILY #30 tabs 10/03/24 tablet,extended release 24 hr Allergies Allergy/AdvReac Type Severity Reaction Status Date / Time Iwpzean-ZSP-BuX Reductase Allergy Severe throat Verified 10/03/24 11:58 Inhibitor swelling aspirin Allergy Unknown ADR-Abdominal Verified 11/04/24 11:58 Pain codeine Allergy ADR-Abdominal Verified 10/03/24 11:58 Pain morphine Allergy ADR-Abdominal Verified 10/03/24 11:58 Pain penicillin G Allergy ALGY-Bliste Verified 10/03/24 11:58 r Sulfa (Sulfonamide Allergy ADR-Nausea Verified 10/03/24 11:58 Antibiotics) Review of Systems 2 Const: Denies: fever(s) or chills Card: Reports: palpitations; Denies: chest pain Resp: Denies: dyspnea GI: Denies: abdominal pain : Denies: dysuria, urinary frequency or urinary urgency Musc: Denies: neck pain or back pain Skin/Breast: Denies: rash PFSH ED 2 PFSH: Medical History Statin intolerance Osteoarthritis involving multiple joints on both sides of body Dyslipidemia GERD (gastroesophageal reflux disease) COPD (chronic obstructive pulmonary disease) Benign essential HTN Surgical History Hx of esophagogastroduodenoscopy 8 gastritis Hx of colonoscopy with polypectomy 8 tubular adenoma; repeat 5 yrs History of cholecystectomy History of carpal tunnel release Bilaterally History of appendectomy History of total abdominal hysterectomy and bilateral salpingo-oophorectomy no cancer; done for bleeding Family History Grandfather Diabetes mellitus, type 2 Social History Smoking and tobacco/nicotine status: former use of tobacco/nicotine Quit status (tobacco/nicotine): has quit using Year quit tobacco: 1976 Former quit date comment: quit 40yrs ago Alcohol intake: never Substance/Drug Use: never Household members: spouse Marital status: Number of children: 3 Highest education level completed: Master's Degree Current occupational status: retired 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 Physical Exam 2 Const: COMMON NORMALS: no acute distress GENERAL APPEARANCE: cooperative ORIENTATION/CONSCIOUSNESS: Yes awake, Yes oriented to person, Yes oriented to place and Yes oriented to time HENMT: COMMON NORMALS: normocephalic, atraumatic and hearing grossly normal bilaterally HEAD & SCALP: normocephalic and atraumatic Resp: COMMON NORMALS: normal respiratory effort, No retractions, No use of accessory muscles and clear to auscultation bilaterally AUSCULTATION: clear to auscultation bilaterally Cardio: COMMON NORMALS: regular rhythm and No murmurs present (Cardio) R ATE: bradycardic RHYTHM: regular rhythm GI: COMMON NORMALS: Soft to palpation and No hepatosplenomegaly present A USCULTATION: Yes normoactive bowel sounds PALPATION: Yes Soft to palpation, No Tenderness to palpation present (GI), No Guarding due to palpation present (GI) and Yes No hepatosplenomegaly present Extremity: COMMON NORMALS: normal to inspection, capillary refill normal, no clubbing, cyanosis or edema, no calf tenderness and no pedal edema Neuro: SENSORIUM/ORIENTATION: Yes oriented to person, Yes oriented to place and Yes oriented to time Skin: COMMON NORMALS: no rashes or lesions noted GENERAL SKIN EXAM: no rashes or lesions noted Course 2 Vital Signs: Vital signs: Vital Signs Temperature 97.6 F 10/03/24 11:54 Pulse Rate 57 L 10/03/24 17:06 Respiratory Rate 18 10/03/24 11:54 Blood Pressure 130/66 10/03/24 17:06 Pulse Oximetry 95 10/03/24 17:06 Oxygen Delivery Me thod Room Air 10/03/24 11:54 MDM - Arrhythmia/Palpitations Medical Decision Making Cardiac enzymes negative EKG changes or some lateral ST depression but has been present before on previous EKGs. I think at this point we can discharge her home home and start her on enteric-coated aspirin along with isosorbide mononitrate and have her stop the hydrochlorothiazide and set up for an outpatient stress test. Her heart score is 3. Will set her up for an outpatient 48-hour Holter monitor as well as she is complaining of palpitations. She is pain-free at the time of discharge. [place] was negative. Medical Records I reviewed the patient's medical records. Lab Data I reviewed the patient's lab results. 10/03/24 13:22 10/03/24 13:22 Radiology Impressions Chest X-Ray 10/03/24 11:34 IMPRESSION: No acute chest abnormality. Laboratory Results WBC 8.20 10^3/uL (3.29-11.43) 10/03/24 13:22 RBC 4.90 10^6/uL (3.85-5.65) 10/03/24 13:22 Hgb 15.20 g/dL (11.27-16.99) 10/03/24 13:22 Hct 46.9 % (36-47) 10/03/24 13:22 MCV 95.7 fl (85-98) 10/03/24 13:22 MCH 31.0 pg (27-33) 10/03/24 13:22 MCHC 32.4 g/dL (30-55) 10/03/24 13:22 RDW 12.6 % (12.1-15.1) 10/03/24 13:22 Plt Count 328 10^3/cmm (157-399) 10/03/24 13:22 MPV 9.8 fL (7.4-10.4) 10/03/24 13:22 Neut % (Auto) 62.3 % 10/03/24 13:22 Lymph % (Auto) 27.7 % 10/03/24 13:22 [place] % (Auto) 7.4 % 10/03/24 13:22 Eos % (Auto) 1.5 % 10/03/24 13:22 Baso % (Auto) 0.6 % 10/03/24 13:22 Neut # (Auto) 5.11 10^3/uL (1.8-7.7) 10/03/24 13:22 Lymph # (Auto) 2.3 10^3/uL (0.8-4.8) 10/03/24 13:22 [place] # (Auto) 0.6 10^3/uL (0.2-0.9) 10/03/24 13:22 Eos # (Auto) 0.1 10^3/uL (0.0-0.8) 10/03/24 13:22 Baso # (Auto) 0.1 10^3/uL (0.0-0.1) 10/03/24 13:22 Nucleated RBC % (auto) 0 % 10/03/24 13:22 Nucleated RBCs # 0.0 /100WBC 10/03/24 13:22 PT 12.80 SECONDS (12.1-14.9) 10/03/24 13:22 INR 0.94 (0.8-1.2) 10/03/24 13:22 Sodium 140 mmol/L (136-145) 10/03/24 13:22 Potassium 4.4 mmol/L (3.5-5.1) 10/03/24 13:22 Chloride 102 mmol/L (98-107) 10/03/24 13:22 Carbon Dioxide 25 mmol/L (22-29) 10/03/24 13:22 Anion Gap 17.4 (5-19) 10/03/24 13:22 BUN 16 mg/dL (8-23) 10/03/24 13:22 Creatinine 1.0 mg/dL (0.5-0.9) H 10/03/24 13:22 GFR Calculation Not Reportable 10/03/24 13:22 Glucose 93 mg/dL (65-115) 10/03/24 13:22 Calculated Osmolality 291 mOsm/kg (285-295) 10/03/24 13:22 Calcium 10.0 mg/dL (8.5-10.5) 10/03/24 13:22 Total Bilirubin 0.3 mg/dL (0.15-1.2) 10/03/24 13:22 AST 25 U/L (0-32) 10/03/24 13:22 ALT 25 U/L (0-33) 10/03/24 13:22 Alkaline Phosphatase 67 U/L (35-105) 10/03/24 13:22 Troponin T Baseline 14 ng/L (0-10) H 10/03/24 13:22 Troponin T 120 Minute 13.81 ng/L (0-10) H 10/03/24 15:20 Delta Troponin T -0.19 ABS# (0-10) L 10/03/24 15:20 Total Protein 7.6 g/dL (6.6-8.7) 10/03/24 13:22 Albumin 4.2 g/dL (3.5-5.2) 10/03/24 13:22 Globulin 3.4 g/dL (1.3-4.6) 10/03/24 13:22 Lipase 33 U/L (13-60) 10/03/24 13:22 All radiology interpretation(s) finalized by discharge Clincial Decision Support The following clinical decision support tools were used to aid in care of the patient HEART Score -> History: Slightly Suspicous, EKG: Non-specific Changes, Age: 65 or more yrs, Risk Factors: No Risk Factors Known, Troponin: Baseline Trop <16 ng/L. Resulting HEART Score: 3. Discharge Plan Discharge Patient Disposition: Home Clinical Impression: Chest pain, Hypertension, Palpitations Condition: Stable Prescriptions: New aspirin 81 mg tablet,delayed release (DR/EC) 81 mg PO DAILY Qty: 30 0RF isosorbide mononitrate 30 mg tablet extended release 24 hr 30 mg PO DAILY Qty: 30 0RF Discontinued hydrochlorothiazide 12.5 mg tablet 12.5 mg PO DAILY Qty: 5 0RF No Action multivitamin Tablet 1 tab PO DAILY meclizine 25 mg tablet 25 mg PO DAILY PRN (Reason: Dizziness Or Vertigo) cholecalciferol (vitamin D3) 25 mcg (1,000 unit) capsule 25 mcg PO DAILY Estroven Cmplt Menopause Rlf 4 mg tablet 4 mg PO DAILY hydrocortisone [Cortisone (hydrocortisone)] 1 % cream 1 applic topical BID PRN (Reason: skin irritation) Qty: 28.35 0RF albuterol sulfate 90 mcg/actuation HFA aerosol inhaler 1 puff inhalation QID PRN (Reason: Shortness Of Breath Or Wheezing) Qty: 8.5 3RF Rx Instructions: INHALE 1 PUFF BY MOUTH 4 TIMES DAILY pantoprazole 40 mg tablet,delayed release (DR/EC) 40 mg PO DAILY Qty: 30 5RF Rx Instructions: Take 1 tablet by mouth once daily fluticasone furoate-vilanterol [Breo Ellipta] 200-25 mcg/dose blister with device 1 inh inhalation DAILY Qty: 60 5RF celecoxib 100 mg capsule 100 mg PO BID Qty: 180 0RF Rx Instructions: TAKE 1 CAPSULE BY MOUTH TWICE A DAY ezetimibe 10 mg tablet 10 mg PO DAILY Qty: 90 0RF Rx Instructions: TAKE 1 TABLET BY MOUTH EVERY DAY Discharge Orders: Discharge ED (Routine); Ordered 10/03/24 Ordered By: Henry Kern Referrals: Kelsey Maharaj MD [Primary Care Provider] - Discharge Diet: Usual diet Discharge Activity: Increase activity as tolerated Patient Instructions: Opioid Safety, Pain Management Activity Restrictions/Additional Instructions: Thank you for choosing [facility] for your healthcare needs today. It is very important that you follow up as instructed or that you return to the Emergency Department should you have concerns or if your condition changes or worsens in any way. You are seen in the emergency room with complaints of chest pain. Cardiac enzymes were negative EKG does not show any persistent acute changes. Recommend you stop the hydrochlorothiazide will start you on isosorbide mononitrate 30 mg once daily. In addition recommend that you take an enteric-coated baby aspirin once daily. Also here for an outpatient Lexiscan sestamibi stress test Coding Level of Care Code ED Marketing Communications Manager for Tom Figueroa
[2024-10-03 15:49] LABS: Troponin 5 2HR 13.81 ng/L (0-10)
[2024-10-03 15:52] LABS: Troponin 5 2HR Delta -0.19 ABS# (0-10)
--- NOTE | 2024-10-03 16:14 | ECG_ITS ---
[facility] Pat Name: Phuong Sweeney Department: Room: Gender: Female Explosive Ordnance Manager: : 1955 Requested By: Jorge Adams Order Number: [id number] Reading MD: JENNYFER WALDRON Measurements Intervals [place] Rate: 48 P: 65 PA: 145 QRS: 55 QRSD: 93 T: 69 QT: 408 QTc: 368 Interpretive Statements SINUS BRADYCARDIA POSSIBLE LEFT ATRIAL ENLARGEMENT [-0.1mV P-WAVE IN V1/V2] MODERATE ST DEPRESSION [0.05+ mV ST DEPRESSION] Compared to ECG 10/03/2024 11:49:03 No significant changes Electronically Signed On 10-07-2024 00:42:01 BUSINESS PROCESS CONSULTANT by JENNYFER WALDRON [id number]
[2024-10-03 17:06] VITALS: BP 130/66; PULSE 57; O2SAT 95
--- NOTE | 2024-10-03 17:22 | DCPLANNER ---
faxed outpatient lexiscan order to scheduling
--- NOTE | 2024-10-05 07:52 | DCPLANNER ---
Message sent to Cardiology for Holter monitor request-
== END 2024-10-03 17:10 | disposition home or self-care (01) ==
PROVIDERS: Emergency Medicine; Emergency Provider Family Medicine; PCP Family Medicine
DX: R07.9 Chest pain, unspecified (principal); I10 Essential (primary) hypertension; R00.2 Palpitations; Z87.891 Personal history of nicotine dependence; J44.9 Chronic obstructive pulmonary disease, unspecified
CPT/HCPCS: 36415; 71045; 80053; 83690; 84484; 85025; 85610; 93005; 99285

== ENCOUNTER → 2024-10-06 10:47 | Outpatient (BNVA) | payer MEDICARE, SELFPAY | PROVIDERS: PCP Family Medicine; Referring Provider Family Medicine; Visit Provider Internal Medicine Cardiovascular Disease | DX: I20.89 Other forms of angina pectoris (principal); R07.9 Chest pain, unspecified; I47.10 Supraventricular tachycardia, unspecified; I47.20 Ventricular tachycardia, unspecified; I49.1 Atrial premature depolarization; I49.3 Ventricular premature depolarization | CPT/HCPCS: 93242 ==

== ENCOUNTER 2024-10-13 07:58 | Outpatient (CLI) | payer MEDICARE, SELFPAY ==
--- NOTE | 2024-10-13 | ECG_ITS ---
[email or web address] Test Date: 2024-10-13 Pat Name: Phuong Sweeney Department: Room: Gender: Female Optical Effects Layout Person: : 1955 Requested By: Henry Olmstead Order Number: [id number] Katelynn MD: Heidi Worthington M.D. Interpretive Statements Lung unchanged pre/post procedure; Intraprocedure shortess of breath; Symptoms resoled by discharge PROCEDURE: At the baseline, the EKG revealed sinus bradycardia with a rate of [address]-T changes.. The baseline heart was 50 bpm with a blood pressue of 154/84 mm of Hg Lexiscan was infused over a period of 20 seconds. A total of 0.4 milligrams of Lexiscan was infused. The stress phase was continued for a total of 5 minutes. Heart rate at the end of the stress phase was 74 bpm with a blood pressure 158/77 mm of Hg. The EKG at the peak infusion revealed some nonspecific ST changes significantly. Sestamibi was injected 20 seconds after the Lexiscan infusion. Heart rate at the end of the recovery phase was 67 bpm with a blood pressure of 150/77 mm of Hg. CONCLUSION: 1. No significant EKG changes with the LexiScan infusion 2. No LexiScan induced chest pain or cardiac arrhythmia 3. Normal blood pressure and heart rate response 4. Sestamibi/sestamibi perfusion scan pending; see separate report. Electronically Signed On 10-15-2024 13:45:52 ROGUER by Heidi Worthington M.D. [id number]
[2024-10-13 08:06] VITALS: BMI 30.7
--- NOTE | 2024-10-13 08:40 | NMCV_ITS ---
NM cliff perf SPECT r/s* [id number] Phuong Sweeney Age: 69 Gender: F : 1955 Exam Date: 10/13/2024 09:08 Ordering Phys: Henry Kern DO Technologist: BHAVANI Montoya Exam Location: [facility] Indications: CP STRESS TEST [facility] IMAGE PROTOCOL Rest/Stress 1 Lexiscan Day Radiopharmaceutical Dose (mCi) Administration Site Administered by Rest: Tc-99m 10.5 IV Amber Lomax, PEDIATRIC NEUROLOGIST Sestamibi Stress:Tc-99m 32.5 IV Amber Dami, PEDIATRIC NEUROLOGIST Sestamibi Rest: 13-Oct-2024 60 Discovery 630 Stress: 13-Oct-2024 30 Discovery 630 0.4mg Lexiscan. Images obtained in supine and prone position. SPECT RESULTS Technical Quality: Good Raw Data Analysis: Breast attenuation Image Corrections: Summed Stress Score: 0 Summed Rest Score: 1 Summed Difference Score: 0 PERFUSION FINDINGS Fairly uniform myocardial tracer uptake with no significant perfusion abnormalities FUNCTIONAL RESULTS (calculated via Gated SPECT) Stress Image LV EF (%): 80 Stress EDV (mL):65 TID: 1.13 Stress ESV (mL):13 FUNCTIONAL FINDINGS: Segmental wall motion analysis revealing no gross wall motion abnormalities IMPRESSIONS 1. Uniform myocardial tracer uptake with no significant perfusion abnormalities. 2. Normal LV ejection fraction of 80%. 3. LV wall motion analysis revealing no gross wall motion abnormalities. 4. Normal LV volume Low probability for coronary ischemia, based on the above findings No similar previous studies are available for comparison Dr Heidi Worthington MD [facility] (Electronically Signed) Final Date: 13 October 2024 12:30 S
[2024-10-13] MEDS: regadenoson 0.4 Mg/5 ml Syringe IVP (10:01)
[2024-10-13 10:08] VITALS: BP 150/77; PULSE 63
== END 2024-10-13 07:59 | disposition home or self-care (01) ==
PROVIDERS: PCP Family Medicine; Visit Provider Family Medicine
DX: R07.9 Chest pain, unspecified (principal); R06.02 Shortness of breath
CPT/HCPCS: 36415; 78452; 93017; 96374; A9500; J2785

== ENCOUNTER 2024-11-04 10:00 | Outpatient (CLI) | payer MEDICARE, SELFPAY ==
--- NOTE | 2024-11-04 10:48 | CT_ITS ---
WS: [id number] CT ORBITS TECHNIQUE: Noncontrast CT of the orbits with coronal and sagittal reformatted images. CLINICAL INFORMATION: trauma to orbit COMPARISON: None. DLP: 376.[address] scans at [facility] use at least one of these dose optimization techniques: automated e xposure control; mA and/or kV adjustment per patient size (includes targeted exams where dose is matc hed to clinical indication); or iterative reconstruction. FINDINGS: Soft tissue edema overlying the LEFT orbit and LEFT frontal calvarium. No visualized fractures. Anter ior nasal bones are normal. Normal zygoma. Normal pterygoid plates. Maxillary sinuses are normal. Nor mal lateral orbits. Normal lamina papyracea. Inferior orbits are normal. No acute orbital fractures. Normal maxillary process. Paranasal sinuses are well aerated. Normal posterior nasopharynx. Normal parapharyngeal fat. Vascular calcification. CT/CT orbit BI wo con* [id number] IMPRESSION: 1. Soft tissue edema overlying the LEFT orbit and LEFT frontal calvarium. 2. No visualized fractures.
== END 2024-11-04 10:01 | disposition home or self-care (01) ==
LOC: RAD 10:01
PROVIDERS: PCP Family Medicine; Visit Provider Emergency Medicine
DX: S05.12XA Contusion of eyeball and orbital tissues, left eye, initial encounter (principal); X58.XXXA Exposure to other specified factors, initial encounter
CPT/HCPCS: 70480

== ENCOUNTER 2024-12-13 09:23 | Emergency (ER) | payer MEDICARE, SELFPAY ==
[2024-12-13 09:30] VITALS: BP 177/82; PULSE 59; TEMP 36.6; O2SAT 97; BMI 29.2
--- NOTE | 2024-12-13 09:33 | ECG_ITS ---
[facility] Date: 2024-[facility]13 Pat Name: Phuong Sweeney Department: Room: Gender: Female Care Administrative Tech: : 1955 Requested By: Henry Olmstead Order Number: [id number] Katelynn MD: Heidi Worthington M.D. Measurements Intervals [place] Rate: 54 P: 59 OR: 128 QRS: 48 QRSD: 90 T: 62 QT: 407 QTc: 389 Interpretive Statements SINUS BRADYCARDIA POSSIBLE LEFT ATRIAL ENLARGEMENT [-0.1mV P-WAVE IN V1/V2] MODERATE ST DEPRESSION [0.05+ mV ST DEPRESSION] Compared to ECG 10/03/2024 16:14:57 No significant changes Electronically Signed On 12-14-2024 00:01:45 TOOL MECHANIC by Heidi Worthington M.D. [id number]
--- NOTE | 2024-12-13 09:41 | XRR_ITS ---
PROCEDURE INFORMATION: Exam: XR Chest Exam date and time: 12/13/2024 9:47 AM Age: 69 years old Clinical indication: Other: Elevated heart rate; Additional info: Palpitations TECHNIQUE: Imaging protocol: Radiologic exam of the chest. Views: 1 view. COMPARISON: CR XR chest 1V portable [id number] 10/03/2024 11:39 AM FINDINGS: Lungs: Small amount of new atelectasis and/or pneumonitis in the left lung base. No other significant pulmonary abnormalities. Pleural spaces: Unremarkable. No pleural effusion. No pneumothorax. Heart/Mediastinum: Unremarkable. No cardiomegaly. Bones/joints: Unchanged mild scoliosis. Unchanged mild multilevel spondylosis. Otherwise, unremarkable. XR/XR chest 1V portable [id number] IMPRESSION: Small amount of new atelectasis and/or pneumonitis in the left lung base.
--- NOTE | 2024-12-13 09:51 | ED_ITS ---
HPI - General Adult 2 General: Chief complaint: Arrhythmia/Palpitations Stated complaint: HIGH HEART RATE Time Seen by Provider: 12/13/24 09:41 Source: patient Mode of arrival: ambulatory Limitations: no limitations History of Present Illness: Patient is a 69-year-old female who presents to ED today with a complaint of an elevated blood pressure reading with a systolic of 190 as well as feeling like her heart was beating hard and some lightheadedness. Patient states she took her blood pressure this morning and it was noted to have a systolic of 159. Patient was recently prescribed a new blood pressure medication?HCTZ. She states she then took her normal blood pressure medication (isosorbide) and her new blood pressure medication for the first time (HCTZ) and about an hour later felt lightheaded and felt like her heart was beating hard/fast so she rechecked her blood pressure and found her systolic was 190 thus decided to come to the emergency department. Reports her pulse was in the 90s. Patient is not having any chest pain. At time of my initial examination, blood pressure is 150s/80s and her heart rate is upper 50s which she states is normal for her. Despite her feeling lightheaded, she was able to easily walk to her room without difficulty or assistance. Onset (ago): hour(s) Relieving factors: none Exacerbating factors: none Associated symptoms: Reports palpitations; Deny chest pain, confusion, dyspnea, headache(s), malaise, nausea, rash, syncope or vomiting Treatments prior to arrival: none Related Data Home Medications Medication Instructions Recorded Confirmed meclizine 25 mg tablet 50 mg PO DAILY PRN Dizziness Or 06/02/22 12/13/24 Vertigo multivitamin 1 tab PO DAILY 06/02/22 12/13/24 cholecalciferol (vitamin D3) 25 25 mcg PO DAILY 02/20/23 12/13/24 mcg (1,000 unit) capsule rhubarb root extract 4 mg tablet 4 mg PO DAILY 07/04/24 12/13/24 (Estroven Complete Menopause Relief) Previous Rx's Medication Instructions Recorded albuterol sulfate 90 mcg/actuation 1 puff inhalation QID PRN 07/26/24 aerosol inhaler Shortness Of Breath Or Wheezing #8.5 grams celecoxib 100 mg capsule 100 mg PO BID #180 caps 09/19/24 ezetimibe 10 mg tablet 10 mg PO DAILY #90 tabs 09/27/24 aspirin 81 mg tablet,delayed 81 mg PO DAILY #30 tabs 10/03/24 release fluticasone furoate 200 1 inh inhalation DAILY #60 ea 10/21/24 mcg-vilanterol 25 mcg/dose inhalation powder (Breo Ellipta) isosorbide mononitrate 30 mg 30 mg PO DAILY #90 tabs 10/21/24 tablet,extended release 24 hr hydrochlorothiazide 12.5 mg tablet 12.5 mg PO DAILY #90 tabs 12/12/24 pantoprazole 40 mg tablet,delayed 40 mg PO DAILY #30 tabs 12/13/24 release Allergies Allergy/AdvReac Type Severity Reaction Status Date / Time [id number] Reductase Allergy Severe throat Verified 12/13/24 09:40 Inhibitor swelling aspirin Allergy Unknown ADR-Abdominal Verified 12/13/24 09:40 Pain codeine Allergy ADR-Abdominal Verified 12/13/24 09:40 Pain morphine Allergy ADR-Abdominal Verified 12/13/24 09:40 Pain penicillin G Allergy ALGY-Bliste Verified 12/13/24 09:40 r Sulfa (Sulfonamide Allergy ADR-Nausea Verified 12/13/24 09:40 Antibiotics) Review of Systems 2 Const: Denies: fever(s), chills, body aches, fatigue or malaise Eyes: Denies: change in vision or blurry vision Card: Reports: palpitations and lightheadedness; Denies: chest pain, irregular heart rhythm, edema, swelling of feet/ankles, syncope, pre-syncope, dyspnea on exertion, orthopnea, leg pain with exertion or acrocyanosis Resp: Denies: dyspnea, productive cough, non-productive cough, wheezing, pain on inspiration, change in phlegm color, hemoptysis or chest congestion GI: Denies: abdominal pain, nausea, vomiting, heartburn or diarrhea : Denies: dysuria Musc: Denies: neck pain, back pain, extremity pain, extremity swelling or joint pain Skin/Breast: Denies: rash Neuro: Denies: headache(s), numbness in extremities, weakness in extremities, sensory changes, difficulty walking, confusion or behavioral changes PFSH ED 2 PFSH: Medical History Chronic dysfunction of both eustachian tubes SVT (supraventricular tachycardia) on heart monitor 2023 Fatigue Stress due to family tension Depression, major Statin intolerance Osteoarthritis involving multiple joints on both sides of body Dyslipidemia GERD (gastroesophageal reflux disease) COPD (chronic obstructive pulmonary disease) Benign essential HTN Surgical History Hx of esophagogastroduodenoscopy 8 gastritis Hx of colonoscopy with polypectomy 07.12.24 tubular adenoma; repeat 5 yrs History of cholecystectomy History of carpal tunnel release Bilaterally History of appendectomy History of total abdominal hysterectomy and bilateral salpingo-oophorectomy no cancer; done for bleeding Family History Grandfather Diabetes mellitus, type 2 Social History Smoking and tobacco/nicotine status: never used tobacco/nicotine Quit status (tobacco/nicotine): has quit using Year quit tobacco: 1976 Former quit date comment: quit 40yrs ago Alcohol intake: never Substance/Drug Use: never Household members: spouse Marital status: Number of children: 3 Highest education level completed: Master's Degree Current occupational status: retired 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 Physical Exam 2 Const: COMMON NORMALS: no acute distress, average body habitus, patient oriented x3, no limitations, healthy appearing, alert and well nourished G ENERAL APPEARANCE: cooperative ORIENTATION/CONSCIOUSNESS: Yes awake, Yes oriented to person, Yes oriented to place and Yes oriented to time HENMT: COMMON NORMALS: normocephalic and atraumatic HEAD & SCALP: normal to inspection, normocephalic and atraumatic FACE & SINUS: normal facial exam and face symmetric Eye: GENERAL EYE: appearance normal, both eyes and all related structures Neck/C-Spine: COMMON NORMALS: full ROM, no lymphadenopathy, supple and no meningeal signs Chest: COMMONS NORMALS: normal inspection of the chest Resp: COMMON NORMALS: normal respiratory effort and clear to auscultation bilaterally AUSCULTATION: clear to auscultation bilaterally Cardio: COMMON NORMALS: regular rate and regular rhythm RATE: regular rate RHYTHM: regular rhythm GI: COMMON NORMALS: Normal to inspection, nondistended, normoactive bowel sounds present, Soft to palpation, non-tender, No hepatosplenomegaly present and no masses PALPATION: Yes Soft to palpation and Yes No hepatosplenomegaly present : COMMON NORMALS: Yes no CVA tenderness BLADDER/KIDNEY EXAM: Yes no CVA tenderness Back/Pelvis: COMMON NORMALS: no CVA tenderness and thoracic and lumbar spine normal to inspection Extremity: COMMON NORMALS: normal to inspection and no calf tenderness G ENERAL: Yes normal exam except as noted Neuro: OLIVA COMA SCALE: document GCS findings [place] coma scale eye opening: Spontaneous [place] coma scale verbal response: Orientated [place] coma scale motor response: Obey commands Oliva coma scale total score: 15 COMMON NORMALS: patient oriented x3, CN's II-XII intact bilaterally, moves all extremities, no focal motor deficits, no sensory deficits noted and gait normal SENSORIUM/ORIENTATION: Yes alert, Yes oriented to person, Yes oriented to place and Yes oriented to time MENINGEAL SIGNS: Yes no meningeal signs Skin: COMMON NORMALS: no rashes or lesions noted GENERAL SKIN EXAM: no rashes or lesions noted Course 2 Vital Signs: Vital signs: Vital Signs Temperature 97.8 F 12/13/24 09:30 Pulse Rate 52 L 12/13/24 11:33 Blood Pressure 131/84 12/13/24 11:33 Pulse Oximetry 93 12/13/24 11:33 Oxygen Delivery Me thod Room Air 12/13/24 10:30 [facility] - General Adult Medical Decision Making Patient is a 69-year-old female here for an elevated blood pressure reading at home approximately an hour after taking her 2 blood pressure medications?HCTZ and isosorbide. Upon arrival to the emergency department her blood pressure was 150s/80s. At time of discharge her blood pressure is 130s/80s. Patient is not complaining of any chest pain. Her baseline troponin is unremarkable. Her baseline EKG showing no acute changes from previous. Looking through previous documentation, patient has had episodes of lightheadedness, palpitations, and fluctuating blood pressures in the past. I do not feel like there is anything further that needs to be done from an emergency standpoint. I would recommend she keep a blood pressure log and follow-up with her PCP Dr. Mahraaj. Medical Records I reviewed the patient's medical records. Lab Data I reviewed the patient's lab results. 12/13/24 09:59 12/13/24 09:59 Radiology Impressions Chest X-Ray 12/13/24 09:41 IMPRESSION: Small amount of new atelectasis and/or pneumonitis in the left lung base. Laboratory Results WBC 14.02 10^3/uL (3.29-11.43) H 12/13/24 09:59 RBC 4.49 10^6/uL (3.85-5.65) 12/13/24 09:59 Hgb 13.70 g/dL (11.27-16.99) 12/13/24 09:59 Hct 42.0 % (36-47) 12/13/24 09:59 MCV 93.5 fl (85-98) 12/13/24 09:59 MCH 30.5 pg (27-33) 12/13/24 09:59 MCHC 32.6 g/dL (30-55) 12/13/24 09:59 RDW 13.0 % (12.1-15.1) 12/13/24 09:59 Plt Count 260 10^3/cmm (157-399) 12/13/24 09:59 MPV 9.8 fL (7.4-10.4) 12/13/24 09:59 Neut % (Auto) 80.0 % 12/13/24 09:59 Lymph % (Auto) 13.9 % 12/13/24 09:59 [place] % (Auto) 4.8 % 12/13/24 09:59 Eos % (Auto) 0.7 % 12/13/24 09:59 Baso % (Auto) 0.2 % 12/13/24 09:59 Neut # (Auto) 11.21 10^3/uL (1.8-7.7) H 12/13/24 09:59 Lymph # (Auto) 2.0 10^3/uL (0.8-4.8) 12/13/24 09:59 [place] # (Auto) 0.7 10^3/uL (0.2-0.9) 12/13/24 09:59 Eos # (Auto) 0.1 10^3/uL (0.0-0.8) 12/13/24 09:59 Baso # (Auto) 0.0 10^3/uL (0.0-0.1) 12/13/24 09:59 Nucleated RBC % (auto) 0 % 12/13/24 09:59 Nucleated RBCs # 0.0 /100WBC 12/13/24 09:59 Sodium 137 mmol/L (136-145) 12/13/24 09:59 Potassium 3.9 mmol/L (3.5-5.1) 12/13/24 09:59 Chloride 101 mmol/L (98-107) 12/13/24 09:59 Carbon Dioxide 25 mmol/L (22-29) 12/13/24 09:59 Anion Gap 14.9 (5-19) 12/13/24 09:59 BUN 19 mg/dL (8-23) 12/13/24 09:59 Creatinine 0.9 mg/dL (0.5-0.9) 12/13/24 09:59 GFR Calculation Not Reportable 12/13/24 09:59 Glucose 96 mg/dL (65-115) 12/13/24 09:59 Calculated Osmolality 286 mOsm/kg (285-295) 12/13/24 09:59 Calcium 9.1 mg/dL (8.5-10.5) 12/13/24 09:59 Total Bilirubin 0.4 mg/dL (0.15-1.2) 12/13/24 09:59 AST 19 U/L (0-32) 12/13/24 09:59 ALT 21 U/L (0-33) 12/13/24 09:59 Alkaline Phosphatase 56 U/L (35-105) 12/13/24 09:59 Troponin T Baseline 8 ng/L (0-10) 12/13/24 09:59 Total Protein 6.3 g/dL (6.6-8.7) L 12/13/24 09:59 Albumin 4.1 g/dL (3.5-5.2) 12/13/24 09:59 Globulin 2.2 g/dL (1.3-4.6) 12/13/24 09:59 All radiology interpretation(s) finalized by discharge Discharge Plan Discharge Patient Disposition: Home Clinical Impression: Elevated blood pressure reading Condition: Stable Prescriptions: No Action multivitamin Tablet 1 tab PO DAILY meclizine 25 mg tablet 50 mg PO DAILY PRN (Reason: Dizziness Or Vertigo) cholecalciferol (vitamin D3) 25 mcg (1,000 unit) capsule 25 mcg PO DAILY Estroven Cmplt Menopause Rlf 4 mg tablet 4 mg PO DAILY albuterol sulfate 90 mcg/actuation HFA aerosol inhaler 1 puff inhalation QID PRN (Reason: Shortness Of Breath Or Wheezing) Qty: 8.5 3RF isosorbide mononitrate 30 mg tablet extended release 24 hr 30 mg PO DAILY Qty: 90 2RF fluticasone furoate-vilanterol [Breo Ellipta] 200-25 mcg/dose blister with device 1 inh inhalation DAILY Qty: 60 5RF hydrochlorothiazide 12.5 mg tablet 12.5 mg PO DAILY Qty: 90 1RF celecoxib 100 mg capsule 100 mg PO BID Qty: 180 0RF ezetimibe 10 mg tablet 10 mg PO DAILY Qty: 90 0RF pantoprazole 40 mg tablet,delayed release (DR/EC) 40 mg PO DAILY Qty: 30 5RF aspirin 81 mg tablet,delayed release (DR/EC) 81 mg PO DAILY Qty: 30 0RF Discharge Orders: Discharge ED (Routine); Ordered 12/13/24 Ordered By: Cecilia Reid Referrals: Kelsey Maharaj MD [Primary Care Provider] - Activity Restrictions/Additional Instructions: As we discussed, please keep a blood pressure log and follow-up with your primary care provider for further evaluation and any further recommendations on blood pressure management. You may return to the emergency department for onset of chest pain, shortness of breath, difficulty breathing, significant dizziness/trouble walking, or any other concerns you may have. Coding Level of Care Code ED [employer] for [employer]
[2024-12-13 10:05] LABS: Basophils % 0.2 %; Eosinophils # 0.1 10^3/uL (0.0-0.8); Eosinophils % 0.7 %; Lymphocytes % 13.9 %; Mean Corpuscular HGB Conc 32.6 g/dL (30-55); Mean Corpuscular Hemoglobin 30.5 pg (27-33); Mean Corpuscular Volume 93.5 fl (85-98); Mean Platelet Volume 9.8 fL (7.4-10.4); Monocytes # 0.7 10^3/uL (0.2-0.9); Monocytes % 4.8 %; Neutrophils # 11.21 10^3/uL (1.8-7.7); Nucleated Red Blood Cells % 0 %; Platelet Count 260 10^3/cmm (157-399); Red Blood Count 4.49 10^6/uL (3.85-5.65); White Blood Count 14.02 10^3/uL (3.29-11.43)
--- NOTE | 2024-12-13 10:12 | PC.PHAR ---
Pt states has been taken off Metoprolol Tart. 25mg 12.5mg bid last fill 11/21/24 90ds and Escitalopram 10mg daily last fill 11/18/24 30ds. Removed from med list.
[2024-12-13 10:22] LABS: Alanine Aminotransferase 21 U/L (0-33); Albumin Level 4.1 g/dL (3.5-5.2); Alkaline Phosphatase 56 U/L (35-105); Anion Gap 14.9 (5-19); Aspartate Amino Transferase 19 U/L (0-32); Blood Urea Nitrogen 19 mg/dL (8-23); Calcium 9.1 mg/dL (8.5-10.5); Carbon Dioxide 25 mmol/L (22-29); Chloride 101 mmol/L (98-107); Creatinine Clr Calc Pharmacy 53.4819; Globulin 2.2 g/dL (1.3-4.6); Glucose 96 mg/dL (65-115); Osmolality Calculated 286 mOsm/kg (285-295); Potassium 3.9 mmol/L (3.5-5.1); Sodium 137 mmol/L (136-145); Total Bilirubin 0.4 mg/dL (0.15-1.2); Total Protein 6.3 g/dL (6.6-8.7); Troponin(5th) Baseline 8 ng/L (0-10)
[2024-12-13 10:30] VITALS: BP 130/81; PULSE 56; O2SAT 93
[2024-12-13 11:33] VITALS: BP 131/84; PULSE 52; O2SAT 93
== END 2024-12-13 11:33 | disposition home or self-care (01) ==
PROVIDERS: Emergency Provider Physician Assistant; PCP Family Medicine
DX: R03.0 Elevated blood-pressure reading, without diagnosis of hypertension (principal); Z79.82 Long term (current) use of aspirin; Z87.891 Personal history of nicotine dependence; J44.9 Chronic obstructive pulmonary disease, unspecified; E78.5 Hyperlipidemia, unspecified
CPT/HCPCS: 36415; 71045; 80053; 84484; 85025; 93005; 99285

== ENCOUNTER 2025-02-20 14:59 | Outpatient (CLI) | payer MEDICARE, SELFPAY ==
--- NOTE | 2025-02-20 15:15 | CT_ITS ---
WS: [id number] CT chest wo con [id number] HISTORY: 1yr f/u CT RML nodule TECHNIQUE: Axial imaging performed through the thorax. Coronal and sagittal reformats are submitted. All CT scans at [facility] use at least one of these dose optimization techniques: automated exposure control; mA and/or kV adjustment per patient size (includes targeted exams where dose is matched to clinical indication); or iterative reconstruction. CONTRAST: None DLP: 323.45 mGy.cm COMPARISON: Chest radiograph 12/13/2024, CT 02/08/2024 Lungs and central airway: No interval change in the 3 mm subpleural nodule in the anterior RIGHT middle lobe. Additional benign granulomata. No additional nodule or mass identified. Poor inspiration with mild breathing motion artifact. Pleura: Normal. No pleural effusion. Heart and pericardium: Mild cardiomegaly. Mediastinum and klarissa: No mediastinum or hilar adenopathy. Vessels: Mild atherosclerosis aorta. Normal size pulmonary artery. Chest wall and lower neck: No soft tissue masses. Upper abdomen: Small hiatal hernia. No adrenal mass. Prior cholecystectomy. Osseous structures: Mild thoracic spondylosis. CT/CT chest wo con [id number] IMPRESSION: 1. Stable 3 mm noncalcified nodule anterior RIGHT middle lobe. Consider additi onal 12-month follow-up to document long-term stability. If the nodule does not change no additional follow-up will be necessary. 2. No pneumonia. 3. Mild aortic atherosclerosis. 4. Prior cholecystectomy. 5. Small hiatal hernia.
== END 2025-02-20 15:00 | disposition home or self-care (01) ==
LOC: RAD 15:04
PROVIDERS: PCP Family Medicine; Visit Provider Family Medicine
DX: R91.1 Solitary pulmonary nodule (principal); I70.0 Atherosclerosis of aorta; Z90.49 Acquired absence of other specified parts of digestive tract; K44.9 Diaphragmatic hernia without obstruction or gangrene; J84.10 Pulmonary fibrosis, unspecified; I51.7 Cardiomegaly; M47.894 Other spondylosis, thoracic region
CPT/HCPCS: 71250